=== PATIENT | female | born 1970 | race Caucasian/White ===

== ENCOUNTER → 2017-04-18 07:32 | Day surgery (SDC) | payer OTHER ==
[~2017-04-18 07:32] MED LIST: Buffered Lidocaine 0.9% SYRIN* 5 ML/SYR SYRINGE INTRADERM ONE; Buffered Lidocaine 0.9% SYRIN* 5 ML/SYR SYRINGE ONE; Bupivacaine 0.5% W/EPI SDV* 10 ML VIAL INJ ONE; Chloroprocaine 2%* 20 ML VIAL ONE; Cisatracurium* 2 MG/ML MDV 5 ML ONE; Dexamethasone IV* 4 MG/ML 1 ML (4 MG) ONE; DiMENhydriNATE IV* 50 MG/ML VIAL IV PUSH PRN; DiMENhydriNATE IV* 50 MG/ML VIAL ONE; Enoxaparin(*) 40 MG/0.4 ML SYR SUBCUT ONE; Famotidine IV* 10 MG/ML 2 ML (20 mg) IV ONE; Famotidine IV* 10 MG/ML 2 ML (20 mg) ONE; HYDROmorphone* 1 MG/ML 1 ML SYR IV PRN; KETAMINE HCL* 50 MG/ML 10 ML VIAL ONE; Ketorolac INJ* 30 MG/ML 1 ML VIAL ONE; Levalbuterol 0.63MG/3ML NEB INH PRN; Lidocaine 2% PF * 5 ML VIAL ONE; Metoclopramide TAB* 10 MG ONE; Metoclopramide TAB* 10 MG PO ONE; Midazolam* 1 MG/ML 5 ML VIAL (5 MG) ONE; Ondansetron INJ* 2 MG/ML VIAL IV PRN; Ondansetron INJ* 2 MG/ML VIAL ONE; Propofol* 10 MG/ML 20 ML BTL IV PUSH ONE; fentaNYL* 50 MCG/ML 2 ML VIAL (100 MCG VIAL) IV PRN; fentaNYL* 50 MCG/ML 2 ML VIAL (100 MCG VIAL) ONE; oxyCODONE/Acetamin 5/325 MG* TAB PO PRN
[2017-04-18 07:44] LABS: UR Preg Internal Control QC Line Present
[2017-04-18 08:21] LABS: Hematocrit 41 % (35-47); Hemoglobin 14.2 g/dl (12.0-16.0); Mean Corpuscular HGB Conc 35 g/dl (31-36); Mean Corpuscular Hemoglobin 32 pg (27-31); Mean Corpuscular Volume 92 fL (80-97); Mean Platelet Volume 9 um3 (7.4-10.4); Red Blood Count 4.49 10^6/ul (4.0-5.4); Red Cell Distribution Width 13 % (10.5-15); White Blood Count 5.9 10^3/ul (3.5-10.8)
[2017-04-18 12:06] VITALS: BP 140/78
--- NOTE | 2017-04-19 14:25 | OP ---
OPERATIVE REPORT: DATE OF OPERATION: 04/18/17 DATE OF : 68 SURGEON: Dr. Sherita Gordon. ANESTHESIOLOGIST: Dr. Vasquez and Dr. Rodriguez. ANESTHESIA: General endotracheal. PRE-OP DIAGNOSIS: Pelvic pain. POST-OP DIAGNOSIS: Stage IV endometriosis. OPERATIVE PROCEDURE: ESTIMATED BLOOD LOSS: Minimal. URINE OUTPUT: 250 cc of clear yellow urine. FLUIDS: 1400 cc of crystalloid. FINDINGS: Revealed extensive adhesions in posterior cul-de-sac involving both right and left ovary and descending colon omental adhesions noted. COMPLICATIONS: None. APPARENT DISPOSITION: Stable to recovery room. DESCRIPTION OF PROCEDURE: The patient was placed in dorsal lithotomy position. After undergoing general endotracheal anesthesia, legs were placed in [place] Duncan stirrups. The perineum and abdomen were then prepped and draped in sterile standard fashion. The patient was identified with universal protocol for correct procedure, patient, and position. A Archuleta catheter was placed for drainage of clear yellow urine. Sterile speculum was inserted. Cervix was visualized, grasped on the anterior lip with a single-tooth tenaculum. An os finder was used to find the endocervical canal. Hulka clamp was then placed without difficulty. Single- tooth tenaculum was removed. At that point, attention was then focused on the abdomen. 6 cc of 0.25% Marcaine was infused into the umbilical site. An 11 scalpel blade was applied. An incision was made. This was carried down through to the peritoneum. The peritoneum was then entered bluntly and 0 Biosyn was placed on either edge of the fascial defect. Blunt obturator was then inserted and insufflated. A laparoscope was inserted confirming excellent position. Pneumoperitoneum was created. At that point, there was blood noted below the pelvis area and the uterus was noted to be adherent posteriorly. There were omental adhesions noted on the right and up on to the left. The liver edge was noted to have a normal appearance, falciform ligament with normal appearance, and bowel was noted to have a normal appearance. At that point, a 5 mm port was placed midline 2 fingerbreadths above the pubic symphysis. The area was infused with 2 cc of 0.25% Marcaine with epi. Incision was made with an 11 scalpel blade. A 5 mm blunt trocar and trocar sheath were placed. Blunt probe was then inserted. There was an adhesion noted of the bowel to the left ovary and posterior aspect of the uterus. This was taken down bluntly. Posterior cul-de- sac was noted to be obliterated. There was a large amount of old blood noted in that area. Both ovaries were adherent to fallopian tubes and adherent to the posterior aspect of the uterus and the ovarian fossa. The ovarian fossa appeared to be obliterated bilaterally. There was no endometrial implant noted on anterior reflection. After completion of thorough evaluation of the pelvis and abdominal cavity, the pneumoperitoneum was then released, trocar was removed 5 mm inferiorly and then the Darion was removed while directly visualizing removal. The pneumoperitoneum was released during this process. The fascia was then reapproximated, each edge with 0 Biosyn for complete reapproximation of the fascia. A subcuticular stitch of 4-0 Monocryl was placed both at the umbilical port and also at the 5 mm port. Mastisol and Steris were applied. Hulka clamp was then removed. Archuleta was removed. All sponge counts, needle and blade counts were correct throughout the case, and the instrument counts were correct throughout the case. The patient tolerated the procedure well and went to recovery room in stable condition. [id number]/[facility] #: [id number] MTDD
== END | disposition home or self-care (01) ==
LOC: OR 07:32
PROVIDERS: ATTEND Obstetrics & Gynecology
DX: N80.9 Endometriosis, unspecified (principal); N73.6 Female pelvic peritoneal adhesions (postinfective); J45.909 Unspecified asthma, uncomplicated; E11.9 Type 2 diabetes mellitus without complications; E03.9 Hypothyroidism, unspecified; Z79.82 Long term (current) use of aspirin; Z88.1 Allergy status to other antibiotic agents; Z88.5 Allergy status to narcotic agent; Z88.6 Allergy status to analgesic agent; Z88.8 Allergy status to other drugs, medicaments and biological substances; R10.30 Lower abdominal pain, unspecified
CPT/HCPCS: 36415; 81025; 85025; 86850; 86900; 86901; A9270-GY; J1100; J1240; J1650; J1885; J2250; J2400; J2405; J2704; J3010

== ENCOUNTER 2017-06-12 08:01 | Inpatient (IN) | payer OTHER ==
[~2017-06-12 08:01] MED LIST changes: -Bupivacaine 0.5% W/EPI SDV* 10 ML VIAL INJ ONE; -Chloroprocaine 2%* 20 ML VIAL ONE; -Cisatracurium* 2 MG/ML MDV 5 ML ONE; +Clindamycin 900 MG IVPREMIX(* 900 MG/50 ML SDV IV ONE; +Dexamethasone IV* 4 MG/ML 1 ML (4 MG) IV SLOW PU ONE; -DiMENhydriNATE IV* 50 MG/ML VIAL IV PUSH PRN; -DiMENhydriNATE IV* 50 MG/ML VIAL ONE; -Enoxaparin(*) 40 MG/0.4 ML SYR SUBCUT ONE; -HYDROmorphone* 1 MG/ML 1 ML SYR IV PRN; -KETAMINE HCL* 50 MG/ML 10 ML VIAL ONE; -Ketorolac INJ* 30 MG/ML 1 ML VIAL ONE; -Levalbuterol 0.63MG/3ML NEB INH PRN; -Lidocaine 2% PF * 5 ML VIAL ONE; -Metoclopramide TAB* 10 MG ONE; -Metoclopramide TAB* 10 MG PO ONE; -Midazolam* 1 MG/ML 5 ML VIAL (5 MG) ONE; -Ondansetron INJ* 2 MG/ML VIAL IV PRN; -Ondansetron INJ* 2 MG/ML VIAL ONE; -Propofol* 10 MG/ML 20 ML BTL IV PUSH ONE; -fentaNYL* 50 MCG/ML 2 ML VIAL (100 MCG VIAL) IV PRN; -fentaNYL* 50 MCG/ML 2 ML VIAL (100 MCG VIAL) ONE; -oxyCODONE/Acetamin 5/325 MG* TAB PO PRN
[2017-06-12] MEDS ORDERED: Midazolam* 1 MG/ML 5 ML VIAL (5 MG) ONE (08:34)
[2017-06-12] MEDS ORDERED: fentaNYL* 50 MCG/ML 2 ML VIAL (100 MCG VIAL) ONE ×4 (08:34→13:49)
[2017-06-12] MEDS ORDERED: Ondansetron INJ* 2 MG/ML VIAL ONE (08:35)
[2017-06-12] MEDS ORDERED: Ketorolac INJ* 30 MG/ML 1 ML VIAL ONE (08:35)
[2017-06-12] MEDS ORDERED: Propofol* 10 MG/ML 20 ML BTL IV PUSH ONE (08:35)
[2017-06-12] MEDS ORDERED: Bupivacaine 0.25% SDV* 30 ML ONE (08:37)
[2017-06-12] MEDS ORDERED: Lidocaine 1.5% EPI 1:200,000* 30 ML SDV ONE (08:38)
[2017-06-12] MEDS ORDERED: Bupivacaine 0.5% SDV PF* 30 ML VIAL ONE (08:59)
[2017-06-12] MEDS ORDERED: KETAMINE HCL* 50 MG/ML 10 ML VIAL ONE (09:00)
[2017-06-12] MEDS ORDERED: Lidocaine 2% PF * 5 ML VIAL ONE (09:02)
[2017-06-12] MEDS ORDERED: Atracurium* 10 MG/ML 10 ML VIAL ONE (09:30)
[2017-06-12] MEDS ORDERED: DiMENhydriNATE IV* 50 MG/ML VIAL IV PUSH PRN (09:43)
[2017-06-12] MEDS ORDERED: Ondansetron INJ* 2 MG/ML VIAL IV PRN (09:43)
[2017-06-12] MEDS ORDERED: Scopolamine 1.5 mg* PATCH TRANSDERM PRN (09:43)
[2017-06-12] MEDS ORDERED: HYDROmorphone* 1 MG/ML 1 ML SYR ONE (11:12)
[2017-06-12] MEDS: fentaNYL* 50 MCG/ML 2 ML VIAL (100 MCG VIAL) IV PRN ×5 (11:15→13:49)
[2017-06-12] MEDS: HYDROmorphone* 1 MG/ML 1 ML SYR IV PRN ×5 (11:25→12:32)
[2017-06-12] MEDS ORDERED: Acetaminophen TAB* 325 MG PO PRN (14:35)
[2017-06-12] MEDS ORDERED: HYDROcodone/ACETAMIN 5-325 MG* 1 TAB ONE (14:35)
[2017-06-12] MEDS ORDERED: Albuterol HFA INHALER* 8 gm MDI INH PRN (14:36)
[2017-06-12] MEDS ORDERED: HYDROcodone/ACETAMIN 5-325 MG* 1 TAB PO PRN (14:38)
[2017-06-12] MEDS ORDERED: PROCHLORPERAZINE INJ 5 MG/ML 2 ML VIAL IV PRN (14:39)
[2017-06-12] MEDS: Ibuprofen TAB* 600 MG PO SCH ×2 (15:13→21:18)
[2017-06-12] MEDS: Enoxaparin(*) 40 MG/0.4 ML SYR SUBCUT SCH (15:13)
[2017-06-12] MEDS ORDERED: HYDROmorphone PCA* 20 MG/20 ML PCA.SYRING ONE (15:44)
[2017-06-12] MEDS ORDERED: HYDROmorphone PCA* 20 MG/20 ML PCA.SYRING PCA SCH (16:00)
[2017-06-12] MEDS: Cetirizine* 10 MG TAB PO SCH (17:47)
[2017-06-12] MEDS: Montelukast Sodium TAB* 10 MG PO SCH (17:48)
[2017-06-12] MEDS: Aspirin Low Dose CHEW TAB* 81 MG PO SCH (17:48)
[2017-06-12] MEDS: Liothyronine TAB* 25 MCG PO SCH (21:18)
[2017-06-13] MEDS: Ibuprofen TAB* 600 MG PO SCH ×4 (03:59→21:32)
[2017-06-13] MEDS: Levothyroxine TAB* 100 MCG TAB PO SCH (05:56)
[2017-06-13 06:28] LABS: Hematocrit 39 % (35-47); Hemoglobin 13.3 g/dl (12.0-16.0); Mean Corpuscular HGB Conc 34 g/dl (31-36); Mean Corpuscular Hemoglobin 30 pg (27-31); Mean Corpuscular Volume 88 fL (80-97); Mean Platelet Volume 8 um3 (7.4-10.4); Red Blood Count 4.43 10^6/ul (4.0-5.4); Red Cell Distribution Width 13 % (10.5-15); White Blood Count 12.7 10^3/ul (3.5-10.8)
--- NOTE | 2017-06-13 07:20 | OP ---
DATE OF OPERATION: 06/12/17 - ROOM #332 DATE OF : 68 SURGEON: Sherita Gordon MD SHOE CUTTER: Apollo Grissom MD ANESTHESIOLOGIST: Elvin Richter MD ANESTHESIA: Spinal, initially with local and then conversion to general endotracheal. PRE-OP DIAGNOSIS: Stage IV endometriosis. POST-OP DIAGNOSIS: Stage IV endometriosis. OPERATIVE PROCEDURE: Supracervical hysterectomy, bilateral salpingo- oophorectomy. ESTIMATED BLOOD LOSS: Less than 100 cc. URINE OUTPUT: 1000 cc of clear yellow urine. FLUIDS: 1900 cc of crystalloid. FINDINGS: Revealed normal-appearing tubes and ovaries, some adhesions noted of the right ovary to the posterior ovarian fossa, obliterating cul-de-sac with endometriosis. Normal-appearing uterus. COMPLICATIONS: None apparent. DISPOSITION: Stable to recovery room. DESCRIPTION OF PROCEDURE: The patient was placed in dorsal lithotomy position after undergoing placement of catheter with sterile technique. The abdomen was then prepped and draped in the sterile standard fashion. The patient was identified with universal protocol for correct procedure, position, and patient. 10 cc of 1.5% Xylocaine with epi was then infused at the incision site without difficulty. An incision was made. The patient vocalized that she could feel the incision and at that point, the decision was made to place the patient under general endotracheal anesthesia. Once general endotracheal anesthesia was accomplished, the incision was then finished and carried out to the fascia. The fascia was scored in the midline and extended laterally and superiorly using curved Melendez scissors. The fascia was superiorly and inferiorly with blunt and sharp dissection from the rectus muscle. The midline was identified. The linea alba was incised and pneumoperitoneum was then entered bluntly. The incision in peritoneum was extended bluntly. The bowel was then packed off with 3 moist laparotomy sponges and moist towel. A Cathleen was used for superior retraction and a [place] was used for inferior retraction. The uterus was visualized and the round and ovarian ligaments were grasped with long Sadaf x2, both for the right and the left. The right round ligament was approached first, clamped with a Sadaf, transected with Bovie coagulation and suture ligated using 0 Vicryl in a Santa fashion and then this was tagged. Dissection was carried out and the peritoneal incision was extended to dissect the bladder down from the lower uterine segment on the right. A vascular window was noted and there were some adhesions on the right ovarian fossa, which were taken down bluntly. The IP ligament was identified and doubly clamped with Santa x2. The tube and ovary was cut, freed from the IP ligaments and the IP ligament was ligated using the free ligature suture and then a Santa 0 Vicryl ligature suture for complete hemostasis. This process then was carried out on the left. The left round ligament was grasped with a Sadaf, Bovie coagulated and transected, suture ligated using 0 Vicryl and then tagged. A window in the broad ligament was identified on the left. Santa was placed across the IP ligament x2. The left tube and ovary were excised from the IP ligament and the IP ligament was free tied ligature suture and then Santa ligature suture for complete hemostasis. The bladder flap was created also on the left side at that point. The uterine arteries were skeletonized and clamped with Santa and back clamped with Santa, transected with Melendez scissors first on the right side, then on the left, and then suture ligated using 0 Vicryl x2 for complete hemostasis of the uterine arteries. Santa-Suzanne was then used to clamp the superior aspect of the cardinal ligament, transected sharply using a scalpel, and 0 Vicryl in Santa fashion was used to ligate that pedicle. This was performed on both sides. The uterus was then removed from the body of the cervix using Bovie coagulation. The specimen was then handed off. The cervical stump was clamped with Rochelle. The endocervical canal was cauterized and the anterior posterior surface of the reflection on the cervix was then identified. Angled sutures were placed using 0 Vicryl and x4 interrupted sutures were used to reapproximate anterior posterior peritoneal surface of the cervix for complete closure of the cervical bed. Hemostasis was assured. A 3-0 Vicryl was used anteriorly as the bladder pillar was bleeding and hemostasis was assured using a 3- 0 Vicryl in interrupted fashion. Copious lavage was performed. Hemostasis assured. Ureters were palpated both on the right and the left, noted to be free and peristalsing with no dilation. Round ligament sutures were then trimmed after documenting hemostasis and the corner ligature sutures of the cervix were then trimmed once the hemostasis was documented. The retractors were then removed. Laparotomy sponge x4 was removed as well as towel. The peritoneum was clamped with Sadaf. Closure of the peritoneum was then carried out using 3-0 Vicryl in a continuous fashion. Subfascial area was visualized. Hemostasis assured and the fascia itself was then reapproximated using 0 Vicryl x2 in a continuous fashion. Subcu was then lavaged. Hemostasis assured. Bovie coagulation of the subcutaneous and Camper's fascia. The [place] 's fascia was then reapproximated using 2-0 Vicryl in an interrupted fashion for closure of the space. The skin was then reapproximated using 4-0 Monocryl in subcuticular fashion. Mastisol and Steri's were then applied. All sponge, instrument, and blade counts were correct throughout the case. The patient tolerated the procedure well and went to recovery room in stable condition. [id number]/[facility] #: [id number] [facility]
[2017-06-13] MEDS: Liothyronine TAB* 25 MCG PO SCH ×2 (08:59→21:32)
[2017-06-13] MEDS: Multivitamins/Minerals TAB PO SCH (08:59)
[2017-06-13] MEDS: Cyanocobalamin TAB* 500 MCG PO SCH (09:00)
[2017-06-13] MEDS: Cholecalciferol TAB* 1000 UNITS PO SCH (09:01)
[2017-06-13] MEDS: HYDROcodone/ACETAMIN 5-325 MG* 1 TAB PO PRN ×3 (13:18→21:32)
[2017-06-13] MEDS: Enoxaparin(*) 40 MG/0.4 ML SYR SUBCUT SCH (15:13)
[2017-06-13] MEDS: Aspirin Low Dose CHEW TAB* 81 MG PO SCH (17:42)
[2017-06-13] MEDS: Cetirizine* 10 MG TAB PO SCH (17:42)
[2017-06-13] MEDS: Montelukast Sodium TAB* 10 MG PO SCH (17:42)
[2017-06-14] MEDS: Ibuprofen TAB* 600 MG PO SCH ×2 (01:57→09:05)
[2017-06-14] MEDS: HYDROcodone/ACETAMIN 5-325 MG* 1 TAB PO PRN ×3 (01:58→09:55)
[2017-06-14] MEDS: Levothyroxine TAB* 100 MCG TAB PO SCH (06:06)
[2017-06-14 08:08] VITALS: BP 126/71
[2017-06-14] MEDS: Cyanocobalamin TAB* 500 MCG PO SCH (09:06)
[2017-06-14] MEDS: Multivitamins/Minerals TAB PO SCH (09:06)
[2017-06-14] MEDS: Cholecalciferol TAB* 1000 UNITS PO SCH (09:06)
[2017-06-14] MEDS: Liothyronine TAB* 25 MCG PO SCH (09:55)
[2017-06-15] MEDS ORDERED: Scopolomine PATCH Remove* 1 NOTE MISC PATCH OFF ONE (09:44)
== END 2017-06-14 10:20 | disposition home or self-care (01) | DRG 742 ==
LOC: AA 08:01 → SSU 14:23
PROVIDERS: ADMIT Obstetrics & Gynecology; ATTEND Obstetrics & Gynecology
PROC: 0UT70ZZ Resection of Bilateral Fallopian Tubes, Open Approach (ICD-10-PCS; 2017-06-12)
PROC: 0UT20ZZ Resection of Bilateral Ovaries, Open Approach (ICD-10-PCS; 2017-06-12)
PROC: 0UT90ZZ Resection of Uterus, Open Approach (ICD-10-PCS; principal; 2017-06-12 09:15)
DX: N80.3 Endometriosis of pelvic peritoneum (principal); D68.8 Other specified coagulation defects; E03.9 Hypothyroidism, unspecified; E11.9 Type 2 diabetes mellitus without complications; J45.909 Unspecified asthma, uncomplicated; E78.00 Pure hypercholesterolemia, unspecified; E66.3 Overweight; F41.9 Anxiety disorder, unspecified; E28.2 Polycystic ovarian syndrome; Z87.442 Personal history of urinary calculi; Z88.8 Allergy status to other drugs, medicaments and biological substances; Z82.5 Family history of asthma and other chronic lower respiratory diseases; Z81.8 Family history of other mental and behavioral disorders; Z83.2 Family history of diseases of the blood and blood-forming organs and certain disorders involving the immune mechanism; Z82.49 Family history of ischemic heart disease and other diseases of the circulatory system; Z83.3 Family history of diabetes mellitus; Z88.1 Allergy status to other antibiotic agents; Z88.6 Allergy status to analgesic agent; Z80.1 Family history of malignant neoplasm of trachea, bronchus and lung; Z80.7 Family history of other malignant neoplasms of lymphoid, hematopoietic and related tissues; Z68.33 Body mass index [BMI] 33.0-33.9, adult
CPT/HCPCS: 36415; 81025; 85027; 86850; 86900; 86901; 88307; A9270-GY; J0780; J1100; J1170; J1580; J1650; J1885; J2250; J2270; J2405; J2704; J3010

== ENCOUNTER 2017-09-20 07:09 | Emergency (ER) | payer OTHER ==
[2017-09-20 07:21] VITALS: BP 138/97
--- NOTE | 2017-09-20 07:51 | UC ---
UC General HPI - HPI Summary HPI Summary: 47 yo WF c/o right para-scapular pain, low back pain and lower abd pain when certain movements x 1 wk after a slip and fall onto her buttock. Wishes to know whether the multiple pains are related to the fall. Pt also getting over a bronchitis s/p 2 rounds of abx and feels better. Denies f/c/n/v/d. BM 2-3x per day, denies constipation or urinary complaints. - History of Current Complaint Chief Complaint: UCBackPain Stated Complaint: ABDOMINAL COMPLAINT Time Seen by Provider: 09/20/17 07:29 Hx Last Menstrual Period: 4 weeks ago Onset/Duration: Gradual Onset Onset Severity: Mild - Allergy/Home Medications Allergies/Adverse Reactions: Allergies Allergy/AdvReac Type Severity Reaction Status Date / Time Naproxen [From Aleve] AdvReac Severe GI BURNING Verified 09/20/17 07:21 Oxycodone AdvReac Severe Anxiety Verified 09/20/17 07:21 [From Oxycodone W/Acetaminophen] Cefuroxime [From Ceftin] AdvReac Intermediate Flushing Verified 09/20/17 07:21 Meperidine [From Demerol HCl] AdvReac Intermediate Flushing Verified 09/20/17 07 :21 Rosuvastatin [From Crestor] AdvReac Intermediate Muscle Ache Verified 09/20/17 07:21 ADHESIVE Allergy Intermediate Rash And Uncoded 09/20/17 07:21 Itching steroid shot AdvReac Intermediate Flushing Uncoded 09/20/17 07:21 Home Medications: Home Medications Azithromyxin KAYLEN (NF) [Z-Kaylen (Zithromax) 250 mg tabs #6] 1 tab PO DAILY [History Confirmed 09/20/17] Fluticasone HFA 110 mcg(NF) [Flovent HFA 110 mcg(NF)] 1 puff INH BID 09/20/17 [ History Confirmed 09/20/17] PMH/Surg Hx/FS Hx/Imm Hx - Surgical History Surgical History: Yes Surgery Procedure, Year, and Place: 12/29 [facility]- (right) middle trigger finger release. appendectomy,. rectal fissure repair,. colon polyps. TUBES IN EARS CHILD. Hysterectomy 06/12/17. T&A. LIPOMA REMOVED LOW BACK. Salivery Gland Removed - Social History Alcohol Use: None Substance Use Type: None Smoking Status (MU): Never Smoked Tobacco Have You Smoked in the Last Year: No - Immunization History Most Recent Influenza Vaccination: Not UTD Most Recent Pneumonia Vaccination: 2014 Review of Systems Constitutional: Negative Skin: Negative Eyes: Negative ENT: Negative Respiratory: Negative Cardiovascular: Negative Gastrointestinal: Other - intermittent suprapubic pain in groin region with certain movements Genitourinary: Other - suprapubic pain Motor: Negative Neurovascular: Negative Musculoskeletal: Other: - SEE HPI Neurological: Negative Psychological: Negative All Other Systems Reviewed And Are Negative: Yes Physical Exam Triage Information Reviewed: Yes Appearance: Well-Appearing Vital Signs: Initial Vital Signs Temp 36.2 C 09/20/17 07:12 Pulse 78 09/20/17 07:12 Resp 16 09/20/17 07:12 BP 138/97 09/20/17 07:12 Pulse Ox 100 09/20/17 07:12 Vital Signs Reviewed: Yes Eye Exam: Normal Eyes: Positive: Conjunctiva Clear ENT: Positive: Normal ENT inspection Dental Exam: Normal Neck: Positive: Supple Respiratory: Positive: Chest non-tender, Lungs clear Cardiovascular Exam: Normal Cardiovascular: Positive: RRR, No Murmur Abdomen Description: Positive: Nontender, Soft. Negative: CVA Tenderness (R) Musculoskeletal Exam: Other - mild medial right trapezial tenderness with shoulder rotation at times radiating to with neck movements, ROM intact in shoulder and neck Psychological Exam: Other - somewhat hyperfocused on minor somatic complaints Skin Exam: Normal Course/Dx - Course Course Of Treatment: XR of chest, lumbosacrum neg for fx, CXR clear, bony edges of scapula and ribs are smooth, no evidence of fracture. UA- trace blood, no LE but pH abnormal-7.0 will tx for UTI - Differential Dx - Multi-Symptom Provider Diagnoses: 1. musculoskeletal pain s/p fall. 2. UTI Discharge - Discharge Plan Condition: Stable Disposition: HOME Prescriptions: Nitrofurantoin Monohyd Macro [Macrobid] 100 mg PO BID 5 Days #10 cap Patient Education Materials: Pelvic Pain in Women (ED) Referrals: Bert Kaur MD [Primary Care Provider] - If Needed
--- NOTE | 2017-09-20 08:50 | RAD ---
INDICATION: Cough and abdominal pain COMPARISON: Most recent comparison chest x-rays dated March 03, 2016 TECHNIQUE: PA and lateral views of the chest and 3 views of the abdomen and pelvis were obtained. FINDINGS: The heart and mediastinum are normal in size and contour. The lungs are grossly clear. There is no evidence of large pleural effusion. Visualized bones are normal for the patient's age. There is a large amount of gas and stool overlying the length of the colon, particularly the cecum and ascending colon. There is no evidence of free intraperitoneal gas. IMPRESSION: 1. NO RADIOGRAPHIC EVIDENCE OF ACUTE CARDIOPULMONARY DISEASE. 2. LARGE AMOUNT OF GAS AND STOOL IS NOTED OVERLYING THE NOT PATHOLOGICALLY ENLARGED COLON. PLEASE CORRELATE TO SYMPTOMS OF CONSTIPATION.
--- NOTE | 2017-09-20 09:07 | RAD ---
INDICATION: Low back pain since a fall the previous week COMPARISON: Lumbar spine radiograph dated November 26, 2016 TECHNIQUE: 5 views of the lumbar spine were obtained. FINDINGS: The vertebra are in normal alignment. No fracture is seen. Degenerative changes include loss of intervertebral disc height involving the lower thoracic spine as well as L4/L5. There is mild sclerotic change at the articulating endplates of L4/L5 similar in appearance to the previous radiograph. IMPRESSION: Degenerative changes of the lower thoracic and lumbar spine similar in appearance to the prior lumbar radiograph.
== END 2017-09-20 09:04 | disposition home or self-care (01) ==
LOC: UCEAST 07:09
DX: M79.1 Myalgia (principal); N39.0 Urinary tract infection, site not specified
CPT/HCPCS: 71020; 72110; 74000; 81003; 99212; G0463

== ENCOUNTER → 2018-11-26 17:22 | Emergency (ER) | payer OTHER ==
[~2018-11-26 17:22] MED LIST changes: -Buffered Lidocaine 0.9% SYRIN* 5 ML/SYR SYRINGE INTRADERM ONE; -Buffered Lidocaine 0.9% SYRIN* 5 ML/SYR SYRINGE ONE; -Clindamycin 900 MG IVPREMIX(* 900 MG/50 ML SDV IV ONE; -Dexamethasone IV* 4 MG/ML 1 ML (4 MG) IV SLOW PU ONE; -Dexamethasone IV* 4 MG/ML 1 ML (4 MG) ONE; -Famotidine IV* 10 MG/ML 2 ML (20 mg) IV ONE; -Famotidine IV* 10 MG/ML 2 ML (20 mg) ONE; +Iodixanol* (CONTRAST) 320 MG/ML 100 ML SDV IV ONE; +Metoclopramide IV* 5 MG/ML 2 ML VIAL IV SLOW PU ONE; +Morphine VIAL* 10 MG/ML 1 ML VIAL IV ONE; +NS 0.9% 1000 ML** 1,000 ML IV ONE
--- OUTSIDE RECORDS SUMMARY | 2018-11-26 17:43 | XMS REPORT | Continuity of Care Document ---
:1970 External Reference #:[id number] Author Name Tiara Vazquez Care Team Providers Name Role Phone Bert Kaur MD Care Team Information Meter/Relay Technician Unavailable Bert Kaur MD Primary Care Physician Unavailable Payers Type Date Identification Numbers Payment Provider Subscriber Expires: 2012 Policy Number: [id number] [employer] Number: [id number] [address] PayID: [id number] [place] [address] Effective: 2012 Policy Number: [id number] [employer] [place] [employer] Number: [id number] [address] PayID: [id number] [place] [address] Advance Directives Description No Information Available Problems Date Description Provider Status Onset: 09/04/2015 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 Family History Date Family Member(s) Problem(s) Comments General Pulmonary Embolism (Pe) General Chronic Obstructive Pulmonary Disease (COPD) General Lung Cancer General Diabetes Father due to Heart Disease () Mother due to Kiddney failure () Siblings 8 Social History Type Date Description Comments Sex Unknown Marital Status Lives With Roommate Occupation eduacation ETOH Use Denies alcohol use Tobacco Use Start: Unknown Patient has never smoked Smoking Status Reviewed: 11/18/18 Patient has never smoked Exercise Type/Frequency Exercises regularly Allergies, Adverse Reactions, Alerts Date Description Reaction Status Severity Comments 09/04/2015 Ceftin Active 09/04/2015 Demerol Active 09/04/2015 Crestor Active 09/04/2015 Aleve Active 06/15/2018 Ciprofloxacin Active Mild Medications Medication Date Status Form Strength Qnty SIG Indications Ordering Provider Lexapro Active Tablets 5mg 1 by Unknown 000 mouth every day Synthroid Active Tablets 100mcg 1 by Unknown 000 mouth every day Aspirin Active Tablets DR 81mg 1 by Unknown 000 mouth every day Cytomel Active Tablets 5mcg 1 by Unknown 000 mouth every day Alprazolam Active Tablets 0.25mg one by Unknown 000 mouth up to two times daily as needed for anxiety Singulair Active Tablets 10mg 1 by Unknown 000 mouth every day Zyrtec Active Tablets 10mg 1 by Unknown Allergy 000 mouth every day Proair HFA Active Aerosol 108(90Base) 2 puffs Unknown 000 mcg/Act by mouth every 4 hours as needed Flovent HFA Active Unknown 000 Augmentin Hx Tablets 875-125mg 14tabs 1 by Anthony 015 - mouth Maria Luisa, twice a M.D. 018 day for 7 days Amoxicillin/C Hx Tablets 500-125mg 14tabs 1 by T79.2xxA Zechariah lavulanate 015 - mouth Ruparelia, Potassium twice a M.D. 018 day Naproxen Hx Tablets 500mg 60tabs 1 po bid Romelia 012 - prn Jaden Deyanira pride 018 Percocet Hx Tablets 5-325mg 30tabs 1-2 po Romelia 012 - q4-6h prn Gifty-Edgar pain shannen MSigridDSigrid 018 Medications Administered in Office Medication Date Status Form Strength Qnty SIG Indications Ordering Provider Celestone 3 mg Administered Injection Romelia and 3mg 012 Cynthia belcher M.D. Depomedrol Administered Injection Jerome 80MG Frieda Velasco M.D. Immunizations Description No Information Available Vital Signs Date Vital Result Comment 11/18/2018 10:37am Height 66 inches 5'6" Weight 258.50 lb Heart Rate 66 /min BP Systolic Sitting 138 mmHg Lue large cuff BP Diastolic Sitting 84 mmHg Lue large cuff Respiratory Rate 16 /min O2 % BldC Oximetry 98 % On Ra BMI (Body Mass Index) 41.7 kg/m2 06/15/2018 7:25am Height 66 inches 5'6" Weight 233.25 lb Heart Rate 68 /min BP Systolic Sitting 120 mmHg Rue large cuff BP Diastolic Sitting 88 mmHg Rue large cuff Respiratory Rate 12 /min O2 % BldC Oximetry 98 % BMI (Body Mass Index) 37.6 kg/m2 Neck Circumference in inches 16.50 09/12/2015 3:40pm Body Temperature 98.6 F Results Description No Information Available Procedures Date Code Description Status 06/18/2018 47085 Sleep Study Unattended,HRT Rate,Oxygen Sat,Resp Completed Effort/Airflow 01/08/2018 22915 Colonoscopy Flexible W/Biopsy Completed 01/08/2018 53179 Endoscopy Upper GI Biopsy Completed 01/08/2018 51448691 Colonoscopy Completed 11/28/2014 96398 ECHO Transthorasic Realtime 2D W Doppler & Color Flow Completed Hosp 11/28/2014 96558 EKG, Interpretation Only Completed 05/05/2013 85272 Polysomnography Sleep Staging 4+ Parameters Completed 04/20/2012 74279 Inject Tendon Sheath Or Ligament Aponeurosis Eg Plantar Completed Fascia 02/04/2012 26265 Inject/Drain Joint/Bursa Major W/O US Completed 01/16/2012 41173 Trigger Finger Release Incision / Tendon Sheath Completed Incision 01/16/2012 78379 Trigger Finger Release Incision / Tendon Sheath Completed Incision 12/31/2011 58078 Rad Shoulder Comp, Min. 2 Views Completed Encounters Type Date Location Provider Dx Diagnosis Office Visit 06/15/2018 [facility] Pam Leonard MD R06.83 Snoring 8:00a [facility] G47.33 Obstructive sleep apnea (adult) (pediatric) E66.09 Other obesity due to excess calories Z68.37 Body mass index (BMI) 37.0-37.9, adult Office Visit 03/02/2013 Elias Garcia 327.23 Obstructive Sleep 10:26a Disorder Center Deyanira Griffin Apnea Adult & Pediatric Office Visit 08/07/2012 Orthopedic Romelia 727.03 Trigger Finger 8:15a Services Of Laura Perez C.M.A., M.D. Office Visit 07/08/2012 Orthopedic [facility] 727.05 Tenosynovitis Hand 10:45a [facility] Of [facility], [facility] Wrist Other C.Galilea Mcmillan Office Visit 2012 Orthopedic [facility] 727.03 Trigger Finger 11:15a Services Of Laura Perez.MPoonam Mcmillan Office Visit 04/20/2012 Orthopedic [facility] 727.05 Tenosynovitis Hand 8:00a [facility] Other C.Galilea Mcmillan 727.03 Trigger Finger Acquired Office Visit 02/04/2012 4:00p Orthopedic Jerome Velasco 726.11 Tendinitis Services Of M.Rolanda Calcifying C.M.A. Shoulder Office Visit 12/31/2011 3:00p Orthopedic Sherlyn Juares6.11 Tendinitis Services Of M.DSigrid Calcifying C.M.A. Shoulder Office Visit 12/10/2011 10:00a Orthopedic Romelia Plata7.03 Trigger Finger Services Of Laura Perez C.M.A., M.D. Plan of Treatment Future Appointment(s):05/21/2019 8:30 am - Nita Zhong DNP, RN, LO-BC at [facility]11/18/2018 - Nita Zhong DNP, RN, LO- BCG47.33 Obstructive sleep apnea (adult) (pediatric)New Orders:[facility], Ordered: 11/18/18Comments:AHI 20.5/hour, lisset oxygen 77%, wt 233, BMI 37.6On CPAP auto AHI 0.6/hour, normalFollow up:6 monthsRecommendations:Continue PAP device, Benefitting and compliant with treatment. Large leak, may want to trim garner. Trial AirTouch mask, do not submerge cushion in water, replace cushion every 4-6 weeks. Cleaning Wipe off mask daily (baby wipe-no scent, or warm water) Clean silicone cushion (not foam), tubing, filter, and water chamber weekly in mild no scent dish soap and water. Hang to dry. If you have any sleepiness while driving you MUST avoid operating a vehicle or machinery. If you have difficulty with your equipment, or need to replace your mask or hoses, please contact your homecare agency. A weight change of 20 pounds or more may have an effect on your equipment; if you are experiencing problems please call for an appointment. If you have any further questions, please call the Sleep Disorder Center at [phone].[phone] Body mass index (BMI) 40.0-44.9, adultRecommendations:Continue with efforts for weight loss
[2018-11-26 18:32] LABS: ABS Basophils 0.1 10^3/ul (0-0.2); ABS Eosinophils 0.1 10^3/ul (0-0.6); ABS Lymphocytes 2.2 10^3/ul (1.0-4.8); ABS Monocytes 0.6 10^3/ul (0-0.8); ABS Neutrophils 2.9 10^3/ul (1.5-7.7); ABS Nucleated RBC 0 10^3/ul; Eosinophil % 1.4 %; Hematocrit 46 % (35-47); Hemoglobin 15.8 g/dl (12.0-16.0); Lymphocyte % 37.5 %; Mean Corpuscular HGB Conc 35 g/dl (31-36); Mean Corpuscular Hemoglobin 30 pg (27-31); Mean Corpuscular Volume 88 fL (80-97); Mean Platelet Volume 7.7 fL (7.4-10.4); Nucleated Red Blood Cells % 0; Platelet Count 236 10^3/ul (150-450); Red Cell Distribution Width 14 % (10.5-15); White Blood Count 5.9 10^3/ul (3.5-10.8)
[2018-11-26 18:46] LABS: Albumin 4.8 g/dL (3.2-5.2); Albumin/Globulin Ratio 1.9 (1-3); BUN/Creatinine Ratio 17.9 (8-20); Calcium 11.1 mg/dL (8.6-10.3); EGFR African American 75.7 (>60); EGFR Non-African American 62.5 (>60); Globulin 2.5 g/dL (2-4); Total Bilirubin 0.5 mg/dL (0.2-1.0); Total Protein 7.3 g/dL (6.4-8.9)
--- NOTE | 2018-11-26 21:37 | ED ---
Abdominal Pain/Female - HPI Summary HPI Summary: Pt is a 48 y/o F presenting to the ED with a chief complaint of abd pain in the LUQ onset weeks ago that wakes her up at night. Pt reports associated chest pain behind the L shoulder blade as well as indigestion. Pt has a hx of pancreatitis. Pt denies vomiting or diarrhea. Pt reports some BM urgency this afternoon. - History of Current Complaint Chief Complaint: EDAbdPain Stated Complaint: ABD AND LT SHOULDER PAIN Time Seen by Provider: 11/26/18 21:19 Hx Obtained From: Patient Hx Last Menstrual Period: 4 weeks ago Onset/Duration: Gradual Onset, Lasting Weeks, Still Present Timing: Constant Severity Initially: Mild Severity Currently: None Pain Intensity: 0 Pain Scale Used: 0-10 Numeric Location: Discrete At: LUQ Radiates: No Character: Cramping Aggravating Factor(s): Nothing Alleviating Factor(s): Nothing Associated Signs and Symptoms: Positive: Back Pain, Other: - BM urgency. Negative: Vomiting, Diarrhea Allergies/Adverse Reactions: Allergies Allergy/AdvReac Type Severity Reaction Status Date / Time naproxen [From Aleve] AdvReac Severe GI Upset Verified 11/26/18 17:33 oxycodone AdvReac Severe Anxiety Verified 11/26/18 17:33 cefuroxime AdvReac Intermediate Flushing Verified 11/26/18 17:33 meperidine AdvReac Intermediate Flushing Verified 11/26/18 17:33 rosuvastatin AdvReac Intermediate Muscle Ache Verified 11/26/18 17:33 ADHESIVE Allergy Intermediate Rash And Uncoded 11/26/18 17:33 Itching steroid shot AdvReac Intermediate Flushing Uncoded 11/26/18 17:33 PMH/Surg Hx/FS Hx/Imm Hx Previously Healthy: No Endocrine/Hematology History: Reports: Hx Diabetes - DMII, Hx Thyroid Disease - HYPO Denies: Hx Anemia Cardiovascular History: Denies: Hx Congestive Heart Failure, Hx Hypertension, Hx Pacemaker/ICD, Other Cardiovascular Problems/Disorders Respiratory History: Reports: Hx Asthma - HAS INHALERS, Hx Pulmonary Embolism - HX OF MTHFR, 3 SIBLINGS HAVE HAD EMBOLISM 1 2 SPONT. MOTHERS WAS SPONTANE, Hx Seasonal Allergies, Hx Sleep Apnea - IN THE PAST, Other Respiratory Problems/ Disorders - PNEUMONIA X 3, NOT RECENT Denies: Hx Chronic Obstructive Pulmonary Disease (COPD) GI History: Denies: Hx Ulcer, Other GI Disorders History: Reports: Hx Kidney Stones - HX OF, OK NOW, Other Problems/ Disorders - HX OF POLYCYSTIC OVARIES, ENDOMETRIOSIS Denies: Hx Renal Disease Musculoskeletal History: Reports: Other Musculoskeletal History - s/p (right) middle trigger finger release Sensory History: Reports: Hx Contacts or Glasses - GLASSES Denies: Hx Hearing Aid Opthamlomology History: Reports: Hx Contacts or Glasses - GLASSES Neurological History: Denies: Other Neuro Impairments/Disorders Psychiatric History: Reports: Hx Anxiety Denies: Hx Panic Disorder, Hx Suicide Attempt, Hx of Violent Episodes Against Others, Hx Substance Abuse, Other Psychiatric Issues/Disorders - Cancer History Hx Chemotherapy: No Hx Radiation Therapy: No - Surgical History Surgery Procedure, Year, and Place: 12/29 [facility]- (right) middle trigger finger release. appendectomy,. rectal fissure repair,. colon polyps. TUBES IN EARS CHILD. Hysterectomy 06/12/17. T&A. LIPOMA REMOVED LOW BACK. Salivery Gland Removed Hx Anesthesia Reactions: No - Immunization History Date of Tetanus Vaccine: Unk Date of Influenza Vaccine: Fall 2013 Infectious Disease History: No Infectious Disease History: Denies: Hx Clostridium Difficile, Hx Hepatitis, Hx Human Immunodeficiency Virus (HIV), Hx of Known/Suspected MRSA, Hx Shingles, Hx Tuberculosis, History Other Infectious Disease, Traveled Outside the [place] in Last 30 Days - Family History Known Family History: Negative: Seizure Disorder - Social History Alcohol Use: None Substance Use Type: Reports: None Hx Tobacco Use: No Smoking Status (MU): Never Smoked Tobacco Have You Smoked in the Last Year: No Review of Systems Negative: Fever Positive: Abdominal Pain, Other - BM urgency, indigestion. Negative: Vomiting, Diarrhea Positive: Myalgia - back pain All Other Systems Reviewed And Are Negative: Yes Physical Exam - Summary Physical Exam Summary: VITAL SIGNS: Reviewed. GENERAL: Patient is a well-developed and nourished female who is lying comfortable in the stretcher. Patient is not in any acute respiratory distress. HEAD AND FACE: No signs of trauma. No ecchymosis, hematomas or skull depressions. No sinus tenderness. EYES: PERRLA, EOMI x 2, No injected conjunctiva, no nystagmus. EARS: Hearing grossly intact. Ear canals and tympanic membranes are within normal limits. MOUTH: Oropharynx within normal limits. NECK: Supple, trachea is midline, no adenopathy, no JVD, no carotid bruit, no c- spine tenderness, neck with full ROM. CHEST: Symmetric, no tenderness at palpation LUNGS: Clear to auscultation bilaterally. No wheezing or crackles. CVS: Regular rate and rhythm, S1 and S2 present, no murmurs or gallops appreciated. ABDOMEN: Soft, LUQ tenderness. No signs of distention. No rebound no guarding, and no masses palpated. Bowel sounds are normal. EXTREMITIES: FROM in all major joints, no edema, no cyanosis or clubbing. NEURO: Alert and oriented x 3. No acute neurological deficits. Speech is normal and follows commands. SKIN: Dry and warm Triage Information Reviewed: Yes Vital Signs On Initial Exam: Initial Vitals Temp Pulse Resp BP Pulse Ox 97 F 75 16 158/98 98 11/26/18 17:28 11/26/18 17:28 11/26/18 17:28 11/26/18 17:28 11/26/18 17:28 Vital Signs Reviewed: Yes Diagnostics - Vital Signs Vital Signs Temp Pulse Resp BP Pulse Ox 11/26/18 19:30 98.3 F 70 17 154/78 100 11/26/18 17:28 97 F 75 16 158/98 98 - Laboratory Lab Results: Lab Results 11/26/18 11/26/18 Range/Units 18:16 18:16 WBC 5.9 (3.5-10.8) 10^3/ul RBC 5.20 (4.00-5.40) 10^6/ul Hgb 15.8 (12.0-16.0) g/dl Hct 46 (35-47) % MCV 88 (80-97) fL MCH 30 (27-31) pg MCHC 35 (31-36) g/dl RDW 14 (10.5-15) % Plt Count 236 (150-450) 10^3/ul MPV 7.7 (7.4-10.4) fL Neut % (Auto) 49.5 % Lymph % (Auto) 37.5 % [place] % (Auto) 10.2 % Eos % (Auto) 1.4 % Baso % (Auto) 1.4 % Absolute Neuts (auto) 2.9 (1.5-7.7) 10^3/ul Absolute Lymphs (auto) 2.2 (1.0-4.8) 10^3/ul Absolute Monos (auto) 0.6 (0-0.8) 10^3/ul Absolute Eos (auto) 0.1 (0-0.6) 10^3/ul Absolute Basos (auto) 0.1 (0-0.2) 10^3/ul Absolute Nucleated RBC 0 10^3/ul Nucleated RBC % 0 Sodium 137 (135-145) mmol/L Potassium 4.0 (3.5-5.0) mmol/L Chloride 105 (101-111) mmol/L Carbon Dioxide 25 (22-32) mmol/L Anion Gap 7 (2-11) mmol/L BUN 17 (6-24) mg/dL Creatinine 0.95 (0.51-0.95) mg/dL Est GFR ( Amer) 75.7 (>60) Est GFR (Non-Af Amer) 62.5 (>60) BUN/Creatinine Ratio 17.9 (8-20) Glucose 121 H (70-100) mg/dL Calcium 11.1 H (8.6-10.3) mg/dL Total Bilirubin 0.50 (0.2-1.0) mg/dL AST 26 (13-39) U/L ALT 46 (7-52) U/L Alkaline Phosphatase 79 (34-104) U/L C-Reactive Protein Pending Total Protein 7.3 (6.4-8.9) g/dL Albumin 4.8 (3.2-5.2) g/dL Globulin 2.5 (2-4) g/dL Albumin/Globulin Ratio 1.9 (1-3) Amylase Pending Lipase Pending Result Diagrams: 11/26/18 18:16 11/26/18 18:16 Lab Statement: Any lab studies that have been ordered have been reviewed, and results considered in the medical decision making process. - CT ABD/PELV CT CT Interpretation Completed By: Radiologist Summary of CT Findings: 1. No CT findings to correlate with patient's symptomatology. 2. Findings of type IV pancreatic divisum. 3. Bosniak type I renal cysts. No followup indicated. 4. Hepatic steatosis. ED physician has reviewed this report. Abdominal Pain Fem Course/Dx - Course Course Of Treatment: Pt is a 48 y/o F presenting to the ED with a chief complaint of abd pain in the LUQ onset weeks ago that wakes her up at night. Pt reports associated pain behind the L shoulder blade as well as indigestion. Pt has a hx of pancreatitis. Pt denies vomiting or diarrhea. Pt reports some BM urgency this afternoon. Pt will be discharged with a dx of abd pain and instructions to f/u with her PCP in 1-2 days. - Diagnoses Provider Diagnoses: Abdominal pain Discharge - Sign-Out/Discharge Documenting (check all that apply): Patient Departure Patient Received Moderate/Deep Sedation with Procedure: No - Discharge Plan Condition: Stable Disposition: HOME Referrals: Bert Kaur MD [Primary Care Provider] - Additional Instructions: PLEASE FOLLOW UP WITH YOUR PCP IN THE NEXT 1-2 DAYS. RETURN TO THE EMERGENCY DEPARTMENT WITH ANY NEW OR WORSENING SYMPTOMS. - Attestation Statements Document Initiated by Morgan: Yes Documenting Scribe: Merari Chung Provider For Whom Morgan is Documenting (Include Credential): Yina Blandon MD. Scribe Attestation: Merari Wbeer, michaeled for Yina Blandon MD. on 11/26/18 at [id number]. Status of Scribe Document: Ready
[2018-11-26 21:49] LABS: C Reactive Protein 3.06 mg/L (<8.01)
[2018-11-26 23:34] LABS: Urine Appearance Clear; Urine Bilirubin Negative (Negative); Urine Blood Negative (Negative); Urine Color Straw; Urine Glucose Negative (Negative); Urine Ketones Negative (Negative); Urine Nitrite Negative (Negative); Urine Protein Negative (Negative); Urine Specific Gravity 1.057 (1.010-1.030); Urine Urobilinogen Negative (Negative)
[2018-11-26 23:47] VITALS: BP 116/69
== END | disposition home or self-care (01) ==
LOC: ED 17:22
DX: R10.12 Left upper quadrant pain (principal); M54.9 Dorsalgia, unspecified; E11.9 Type 2 diabetes mellitus without complications; Z87.442 Personal history of urinary calculi
CPT/HCPCS: 36415; 74177; 80053; 81003; 82150; 83690; 85025; 86140; 96361; 96365; 99283; J2270; J2765; Q9967

== ENCOUNTER 2019-08-04 20:31 | Emergency (ER) | payer OTHER ==
[2019-08-04 21:13] LABS: ABS Eosinophils 0.1 10^3/ul (0-0.6); ABS Lymphocytes 2.5 10^3/ul (1.0-4.8); ABS Monocytes 0.6 10^3/ul (0-0.8); Eosinophil % 1.3 %; Hematocrit 45 % (35-47); Mean Corpuscular HGB Conc 34 g/dL (31-36); Mean Corpuscular Hemoglobin 30 pg (27-31); Mean Corpuscular Volume 89 fL (80-97); Mean Platelet Volume 8.2 fL (7.4-10.4); Nucleated Red Blood Cells % 0.1; Platelet Count 190 10^3/uL (150-450); Red Blood Count 5.02 10^6 /uL (3.70-4.87); Red Cell Distribution Width 14 % (10-15); White Blood Count 6.2 10^3/uL (3.5-10.8)
[2019-08-04] MEDS ORDERED: NS 0.9% 1000 ML** 1,000 ML IV ONE (21:29)
[2019-08-04] MEDS ORDERED: Morphine 4 MG/ML VIAL (1 ml) 4 MG/ML VIAL IV ONE ×2 (21:30→22:47)
[2019-08-04] MEDS ORDERED: Ondansetron INJ* 2 MG/ML VIAL IV ONE (21:30)
[2019-08-04 21:32] LABS: Albumin 4.2 g/dL (3.2-5.2); Albumin/Globulin Ratio 1.8 (1-3); BUN/Creatinine Ratio 20.6 (8-20); Calcium 9.7 mg/dL (8.6-10.3); EGFR African American 65.7 (>60); EGFR Non-African American 54.3 (>60); Globulin 2.4 g/dL (2-4); Total Bilirubin 0.4 mg/dL (0.2-1.0); Total Protein 6.6 g/dL (6.4-8.9)
--- NOTE | 2019-08-04 21:37 | ED ---
GI/ HPI - HPI Summary HPI Summary: 49-year-old transgender female presents with abdominal pain for the past hour. She admits to nausea vomiting. She had a bowel movement earlier today that was normal. No blood in her stool. No urgency frequency or hematuria. States pain does radiate to the back. Does have a history of pancreatitis. Has had ovaries and uterus and appendix removed in the past. Had a history of endometriosis. admits to chest pain but no SOB. pain started right away after eating dinner. - History of Current Complaint Chief Complaint: EDAbdPain Time Seen by Provider: 08/04/19 21:17 Stated Complaint: SEVERE STOMACH PAIN PER PT Hx Last Menstrual Period: 4 weeks ago Pain Intensity: 9 - Additional Pertinent History Primary Care Physician: [id number] - Allergy/Home Medications Allergies/Adverse Reactions: Allergies Allergy/AdvReac Type Severity Reaction Status Date / Time naproxen [From Aleve] AdvReac Severe GI Upset Verified 08/04/19 20:53 oxycodone AdvReac Severe Anxiety Verified 08/04/19 20:53 cefuroxime AdvReac Intermediate Flushing Verified 08/04/19 20:53 meperidine AdvReac Intermediate Flushing Verified 08/04/19 20:53 rosuvastatin AdvReac Intermediate Muscle Ache Verified 08/04/19 20:53 ADHESIVE Allergy Intermediate Rash And Uncoded 08/04/19 20:53 Itching steroid shot AdvReac Intermediate Flushing Uncoded 08/04/19 20:53 Home Medications: Home Medications Escitalopram * [Lexapro 5 mg (NF)] 5 mg PO DAILY 08/04/19 [History Confirmed ] Montelukast Sodium TAB* [Singulair TAB*] 10 mg PO DAILY 08/04/19 [History Confirmed 08/04/19] PMH/Surg Hx/FS Hx/Imm Hx Endocrine/Hematology History: Reports: Hx Diabetes - DMII, Hx Thyroid Disease - HYPO Denies: Hx Anemia Cardiovascular History: Denies: Hx Congestive Heart Failure, Hx Hypertension, Hx Pacemaker/ICD, Other Cardiovascular Problems/Disorders Respiratory History: Reports: Hx Asthma - HAS INHALERS, Hx Pulmonary Embolism - HX OF MTHFR, 3 SIBLINGS HAVE HAD EMBOLISM 1 2 SPONT. MOTHERS WAS SPONTANE, Hx Seasonal Allergies, Hx Sleep Apnea - IN THE PAST, Other Respiratory Problems/ Disorders - PNEUMONIA X 3, NOT RECENT Denies: Hx Chronic Obstructive Pulmonary Disease (COPD) GI History: Denies: Hx Ulcer, Other GI Disorders History: Reports: Hx Kidney Stones - HX OF, OK NOW, Other Problems/ Disorders - HX OF POLYCYSTIC OVARIES, ENDOMETRIOSIS Denies: Hx Renal Disease Musculoskeletal History: Reports: Other Musculoskeletal History - s/p (right) middle trigger finger release Sensory History: Reports: Hx Contacts or Glasses - GLASSES Denies: Hx Hearing Aid Opthamlomology History: Reports: Hx Contacts or Glasses - GLASSES Neurological History: Denies: Other Neuro Impairments/Disorders Psychiatric History: Reports: Hx Anxiety Denies: Hx Panic Disorder, Hx Suicide Attempt, Hx of Violent Episodes Against Others, Hx Substance Abuse, Other Psychiatric Issues/Disorders - Cancer History Hx Chemotherapy: No Hx Radiation Therapy: No - Surgical History Surgery Procedure, Year, and Place: 12/29 [facility]- (right) middle trigger finger release. appendectomy,. rectal fissure repair,. colon polyps. TUBES IN EARS CHILD. Hysterectomy 06/12/17. T&A. LIPOMA REMOVED LOW BACK. Salivery Gland Removed Hx Anesthesia Reactions: No - Immunization History Date of Tetanus Vaccine: Unk Date of Influenza Vaccine: Fall 2013 Immunizations Up to Date: Yes Infectious Disease History: No Infectious Disease History: Denies: Hx Clostridium Difficile, Hx Hepatitis, Hx Human Immunodeficiency Virus (HIV), Hx of Known/Suspected MRSA, Hx Shingles, Hx Tuberculosis, History Other Infectious Disease, Traveled Outside the [place] in Last 30 Days - Family History Known Family History: Negative: Seizure Disorder - Social History Alcohol Use: None Substance Use Type: Reports: None Hx Tobacco Use: No Smoking Status (MU): Never Smoked Tobacco Have You Smoked in the Last Year: No Review of Systems Negative: Fever Negative: Chest Pain Negative: Shortness Of Breath Positive: Abdominal Pain, Vomiting, Nausea All Other Systems Reviewed And Are Negative: Yes Physical Exam Triage Information Reviewed: Yes Vital Signs On Initial Exam: Initial Vitals Temp Pulse Resp BP Pulse Ox 97.6 F 75 16 119/81 96 08/04/19 20:45 08/04/19 20:45 08/04/19 20:45 08/04/19 20:45 08/04/19 20:45 Vital Signs Reviewed: Yes Appearance: Positive: Well-Appearing Skin: Positive: Warm, Dry Head/Face: Positive: Normal Head/Face Inspection Eyes: Positive: Normal, Conjunctiva Clear ENT: Positive: Pharynx normal Respiratory/Lung Sounds: Positive: Clear to Auscultation, Breath Sounds Present Cardiovascular: Positive: Normal, RRR Abdomen Description: Positive: Soft, Other: - tenderness epigastric Bowel Sounds: Positive: Present Musculoskeletal: Positive: Normal Neurological: Positive: Normal Psychiatric: Positive: Normal Procedures - Sedation Patient Received Moderate/Deep Sedation with Procedure: No Diagnostics - Vital Signs Vital Signs Temp Pulse Resp BP Pulse Ox 08/04/19 20:45 97.6 F 75 16 119/81 96 - Laboratory Lab Results: Lab Results 08/04/19 08/04/19 Range/Units 21:05 21:05 WBC 6.2 (3.5-10.8) 10^3/uL RBC 5.02 H (3.70-4.87) 10^6 /uL Hgb 15.0 (12.0-16.0) g/dL Hct 45 (35-47) % MCV 89 (80-97) fL MCH 30 (27-31) pg MCHC 34 (31-36) g/dL RDW 14 (10-15) % Plt Count 190 (150-450) 10^3/uL MPV 8.2 (7.4-10.4) fL Neut % (Auto) 48.9 % Lymph % (Auto) 40.0 % [place] % (Auto) 9.2 % Eos % (Auto) 1.3 % Baso % (Auto) 0.6 % Absolute Neuts (auto) 3.0 (1.5-7.7) 10^3/ul Absolute Lymphs (auto) 2.5 (1.0-4.8) 10^3/ul Absolute Monos (auto) 0.6 (0-0.8) 10^3/ul Absolute Eos (auto) 0.1 (0-0.6) 10^3/ul Absolute Basos (auto) 0.0 (0-0.2) 10^3/ul Absolute Nucleated RBC 0.0 10^3/ul Nucleated RBC % 0.1 Sodium 139 (135-145) mmol/L Potassium Pending Chloride 106 (101-111) mmol/L Carbon Dioxide 26 (22-32) mmol/L Anion Gap Pending BUN 22 (6-24) mg/dL Creatinine 1.07 H (0.51-0.95) mg/dL Est GFR ( Amer) 65.7 (>60) Est GFR (Non-Af Amer) 54.3 (>60) BUN/Creatinine Ratio 20.6 H (8-20) Glucose 156 H (70-100) mg/dL Calcium 9.7 (8.6-10.3) mg/dL Total Bilirubin 0.40 (0.2-1.0) mg/dL AST Pending ALT 65 H (7-52) U/L Alkaline Phosphatase 88 (34-104) U/L Troponin I Pending C-Reactive Protein Pending Total Protein 6.6 (6.4-8.9) g/dL Albumin 4.2 (3.2-5.2) g/dL Globulin 2.4 (2-4) g/dL Albumin/Globulin Ratio 1.8 (1-3) Amylase Pending Lipase 61 (11.0-82.0) U/L Result Diagrams: 08/04/19 21:05 08/04/19 21:05 Lab Statement: Any lab studies that have been ordered have been reviewed, and results considered in the medical decision making process. - CT abd CT Interpretation Completed By: Radiologist Summary of CT Findings: IMPRESSION: 1. No CT findings to correlate with patient' s symptomatology. 2. Cholelithiasis. - Ultrasound No standard instances Ultrasound Interpretation Completed By: Radiologist Summary of Ultrasound Findings: IMPRESSION: 1. Cholelithiasis without cholecystitis. 2. Hepatic steatosis and associated hepatomegaly. - EKG No standard instances Cardiac Rate: NL EKG Rhythm: Sinus Rhythm EKG Comparison: No Significant Change Summary of EKG Findings: sinus rhythm Re-Evaluation - Re-Evaluation First Eval Re-Evaluation Time: 22:36 Comment: still feels uncomfortable and not passing gas so will get CT Second Eval Re-Evaluation Time: 01:05 Change: Improved Comment: feeling better GIGU Course/Dx - Course Course Of Treatment: 49-year-old transgender female presents with abdominal pain for the past hour. She admits to nausea vomiting. She had a bowel movement earlier today that was normal. No blood in her stool. No urgency frequency or hematuria. States pain does radiate to the back. Does have a history of pancreatitis. Has had ovaries and uterus and appendix removed in the past. Had a history of endometriosis. admits to chest pain but no SOB. pain started right away after eating dinner. on exam tenderness in epigastric region. wbc normal. amylase and lipase normal. ekg sinus rhythm. crp normal. troponin zero. lft slightly elevated. urine shows no infection. u/s shows cholelithasis. CT shows no acute findings. will have follow up with surgery about gallstones. will place on course of omeprazole and maalox. told follow up with primary. patient understand and agrees with plan. - Diagnoses Differential Diagnoses - Female: Bowel Obstruction, Gall Bladder Disease, Pancreatitis Provider Diagnoses: Abdominal pain Discharge ED - Sign-Out/Discharge Documenting (check all that apply): Patient Departure - Discharge Plan Condition: Good Disposition: HOME Prescriptions: Al Hydrox/Mg Hydrox/Simet LIQ* [Maalox Plus*] 30 ml PO Q6H PRN #1 udc PRN Reason: Dyspepsia Omeprazole CAP (NF) [Prilosec CAP* 20 MG] 20 mg PO DAILY #14 cap. Ondansetron ODT TAB* [Zofran 4 MG Odt TAB*] 4 mg PO Q6H PRN #16 tab.odt PRN Reason: Nausea Patient Education Materials: Diet for Stomach Ulcers and Gastritis (ED), Epigastric Pain (ED) Referrals: Bert Kaur MD [Primary Care Provider] - Bert Manriquez DO [Doctor of Osteopathy] - Dc Jiménez MD [Medical Doctor] - Additional Instructions: Take omeprazole once a day Take Maalox 30ml every 6 hours for epigastric pain as needed Take Zofran every 6 hours as needed for nausea Avoid acidic foods Follow up with primary within 5 days follow up with gi if no improvement a referral was given for surgery about gallstones Return to ED if develop fever, blood in stool, or severe nausea and vomiting or any new or worsening symptoms - Billing Disposition and Condition Condition: GOOD Disposition: Home
[2019-08-04 21:47] LABS: Potassium 3.7 mmol/L (3.5-5.0)
[2019-08-04 21:48] LABS: C Reactive Protein 1.61 mg/L (<8.01)
[2019-08-04 22:48] LABS: Urine Appearance Cloudy; Urine Bilirubin Negative (Negative); Urine Blood Negative (Negative); Urine Color Yellow; Urine Glucose Negative (Negative); Urine Ketones Trace (Negative); Urine Nitrite Negative (Negative); Urine Protein Negative (Negative); Urine Urobilinogen Negative (Negative)
[2019-08-05] MEDS ORDERED: Iodixanol* (CONTRAST) 320 MG/ML 100 ML SDV IV ONE (00:07)
[2019-08-05] MEDS ORDERED: Al Hydrox/Mg Hydrox/Simet LIQ* 30 ML UDC PO ONE (01:00)
[2019-08-05] MEDS ORDERED: Lidocaine 2% VISCOUS* 15 ML UDC PO ONE (01:00)
[2019-08-05] MEDS ORDERED: Pantoprazole IV* 40 MG IV ONE (01:00)
[2019-08-05 01:25] VITALS: BP 133/89
== END 2019-08-05 01:27 | disposition home or self-care (01) ==
LOC: ED 20:31
DX: R10.9 Unspecified abdominal pain (principal); E11.9 Type 2 diabetes mellitus without complications; E03.9 Hypothyroidism, unspecified; F41.9 Anxiety disorder, unspecified; K80.20 Calculus of gallbladder without cholecystitis without obstruction; Z87.442 Personal history of urinary calculi; Z86.711 Personal history of pulmonary embolism; Z90.710 Acquired absence of both cervix and uterus; Z79.890 Hormone replacement therapy; Z79.899 Other long term (current) drug therapy; Z88.1 Allergy status to other antibiotic agents; Z88.5 Allergy status to narcotic agent; Z88.8 Allergy status to other drugs, medicaments and biological substances
CPT/HCPCS: 36415; 74177; 76705; 80053; 81003; 82150; 83690; 84484; 85025; 86140; 93005; 96361; 96374; 96375; 96376; 99283; A9270-GY; J2270; J2405; Q9967